=== PATIENT | female | born 1980 | race American Indian/Alaskan Native ===

== ENCOUNTER 2018-06-16 14:59 | Emergency (ER) | payer OTHER ==
[2018-06-16 16:17] LABS: BASO % 0.6 % (0.0-2.0); EOS # 0.2 K/uL (0.0-0.7); EOS % 2.3 % (0.0-4.0); HEMOGLOBIN 12.6 g/dL (11.0-16.0); LYMPH # 2.5 K/uL (1.0-4.3); LYMPH % 36.1 % (20.0-40.0); MEAN CELL VOLUME 76.8 fL (81.0-99.0); MEAN CORPUSCULAR HEMOGLOBIN 24.6 pg (27.0-31.0); MEAN PLATELET VOLUME 9.5 fL (7.2-11.7); MONO # 0.6 K/uL (0.0-0.8); NEUT # 3.6 K/uL (1.8-7.0); RBC 5.12 Mil/uL (3.80-5.20); RED CELL DISTRIBUTION WIDTH 15.9 % (11.5-14.5)
[2018-06-16 17:23] LABS: SQUAMOUS EPITHIAL < 1 /hpf (0-5); URINE BILIRUBIN NEGATIVE (NEGATIVE); URINE BLOOD NEGATIVE (NEGATIVE); URINE CLARITY Clear (Clear); URINE COLOR Straw (YELLOW); URINE GLUCOSE (UA) NORMAL (Normal); URINE LEUKOCYTE ESTERASE NEG Leu/uL (Negative); URINE PROTEIN NEGATIVE (NEGATIVE); URINE UROBILINOGEN NORMAL mg/dL (0.2-1.0)
--- NOTE | 2018-06-16 17:46 | US ---
Indication: decreased movement Comparison: None available Technique: Real-time ultrasound was performed through the pelvis. Findings: There is a single living fetus in cephalic presentation. Amniotic fluid volume is within normal limits, 14.3 cm. Anterior placenta. The placenta is not previa. There are no adnexal masses or cysts evident. Cervix length measures approximately 3.1 cm. The study was performed for the emergent evaluation of decreased movement, and the whole anatomic survey of the fetus was not performed. This should be performed on an outpatient elective basis as clinically warranted. Measurements and calculations: Fetus has a composite sonographic age of 33 weeks 6 days. This calculation is based on the biparietal diameter, head circumference, abdominal circumference, and femur length. Estimated heart rate 144.4 beats per min. Estimated weight 2251 g. Biophysical profile: movements 2/2 breathing 2/2 tone 2/2 Amniotic fluid 2/2 Total score impression: 01/15 Impression: Single living fetus with a composite sonographic age of 33 weeks 6 days. Estimated heart rate 144.4 beats per min. Biophysical profile of 8 out of 8.
--- NOTE | 2018-06-16 18:00 | OBHP ---
Datetime: 06/16/2018 15:41 IP Adm Impression: , intrauterine Admit Comment, IP Provider: Patient is 37 year old at 35w0d JESSI 07[birth year] who presents to [facility] and delivery for decreased movement. Patient states that she was feeling contractions intermi ttently over the weekend. Prior to arrival she felt a sharp pelvic pain then she reports not feeling the baby move. Currenlty she states the baby is moving, denies any VB or LOF. Patient is a private of Dr Lynn Cotton, last appointment was 3 weeks ago. History: Denies OB Hx: Hx of delivery at 35 weeks x 1 at term x 3 SAB x 2 [employer] Hx: LMP Unknown Allergies: NKDA Medications: PNV Medical History: Denies Surgical History: Denies Social History: Denies alcohol, drug, tobacco use Family History: Denies PE: see above A/P: 37 year old at 35w0d who presents with pelvic pain and decreased FM -CEFM and TOCO - Biophysical Profile -CBC and UA -Plan discussed with Dr Rohan Vargas DO PGY-2 1800 sono bpp 8/8 ua neg cbc stable nst 130 mod aundrea ctg1 plan dc home ptl gi po hy f/u dr cotton in 2-3 dys FHR - Baseline A Provider: 145 Contraction Comments Provider: none Comments, ACOG Physical Exam: VSS Gen: AAOX3, NAD SVE: Closed/thick/high Ext: No clubbing, cyanosis, edema IP Hx Assessment: The History has been Reviewed and is Current EGA AdmitDate IP: 35.0 Vital Signs Provider: Reviewed; Within Normal Limits IP Chief Complaint: Uterine contractions; Decreased movement NICHD Variability Prov Fetus A: Moderate 6-25bpm NICHD Accel Fetus A IP Provider: 15X15 FHR Category Provider Fetus A: Category I NICHD Decel Fetus A IP Provider: None Dilatation, Provider: closed Effacement, Provider: thick Station, Provider: high
--- NOTE | 2018-06-16 18:00 | OBDCSUM ---
Datetime: 06/16/2018 17:58 Discharged to, Provider: Home Follow up at, Provider: 2-3 Disch Instr Activity: Normal activity Disch Instr Diet: Regular Discharge Time: 06/16/2018 17:57 Follow up in weeks, Provider: dr cotton Disch Referrals: None Discharge Comment, Provider: dc home ptl gi po hy f/u dr cotton in 2-3 dys Discharge Diagnosis Prov Other: 35 we dec fm nst
[2018-06-16 22:14] VITALS: BP 111/65; PULSE 70; RESP 20; TEMP 97.9; O2SAT 100
== END 2018-06-16 18:04 | disposition home or self-care (01) ==
LOC: C.EROB 14:59
DX: O36.8130 Decreased fetal movements, third trimester, not applicable or unspecified (principal); Z3A.35 35 weeks gestation of pregnancy

== ENCOUNTER 2018-07-09 21:19 | Inpatient (IN) | payer OTHER ==
--- NOTE | 2018-07-09 22:05 | OBADHP ---
Datetime: 07/09/2018 22:00 Admit Comment, IP Provider: at 38+weeks camne wih c/o ctxs started in the morning with pressure , no vb , lof?+fm obhx 4 x pmh de med pnv all nkda psh de soch de ve 4-5/70/-3 a/p at 38+weks in active labor admit to l_d npo/ivf labs arline pain danis cytotec dr cotton aware Pelvic Type - PN: Adequate Extremities - PN: Normal Abdomen - PN: Normal Back - PN: Normal Breast - PN: Normal Lungs - PN: Normal Heart - PN: Normal Thyroid - PN: Normal Neurologic - PN: Normal HEENT - PN: Normal General - PN: Normal FHR - Baseline A Provider: 150 Contraction Comments Provider: occ IP Hx Assessment: The History has been Reviewed and is Current Vital Signs Provider: Reviewed; Within Normal Limits IP Chief Complaint: Uterine contractions NICHD Variability Prov Fetus A: Moderate 6-25bpm NICHD Accel Fetus A IP Provider: [id number] FHR Category Provider Fetus A: Category I Dilatation, Provider: 4 Effacement, Provider: 70 Station, Provider: -2 Genitourinary Exam: Normal DTRs - PN: Normal EGA AdmitDate IP: 38.2 IP Adm Impression: Term, intrauterine ; Active labor IP Admit Plan: Admit to unit; Initiate labor protocol Datetime: 06/16/2018 15:41 Comments, ACOG Physical Exam: VSS Gen: AAOX3, NAD SVE: Closed/thick/high Ext: No clubbing, cyanosis, edema NICHD Decel Fetus A IP Provider: None
[2018-07-09] MEDS ORDERED: Penicillin G 5 Million Unit Vial IVPB ONE ×2 (22:06→23:14)
[2018-07-09 22:07] VITALS: BMI 40.3
[2018-07-09] MEDS: Lactated Ringer's 1,000 ML IV SCH (22:30)
[2018-07-09 23:02] LABS: BASO % 0.5 % (0.0-2.0); EOS # 0.1 K/uL (0.0-0.7); EOS % 1.5 % (0.0-4.0); LYMPH % 31.4 % (20.0-40.0); MEAN CORPUSCULAR HEMOGLOBIN 24.9 pg (27.0-31.0); MEAN CORPUSCULAR HGB CONC 32.3 g/dL (33.0-37.0); MEAN PLATELET VOLUME 9.9 fL (7.2-11.7); MONO # 0.5 K/uL (0.0-0.8); MONO % 7.6 % (0.0-10.0); NEUT # 3.7 K/uL (1.8-7.0); RBC 4.82 Mil/uL (3.80-5.20); RED CELL DISTRIBUTION WIDTH 16.3 % (11.5-14.5); WHITE BLOOD COUNT 6.3 K/uL (4.8-10.8)
[2018-07-09 23:07] LABS: SQUAMOUS EPITHIAL 3 /hpf (0-5); URINE BILIRUBIN NEGATIVE (NEGATIVE); URINE BLOOD NEGATIVE (NEGATIVE); URINE CLARITY Clear (Clear); URINE COLOR Yellow (YELLOW); URINE GLUCOSE (UA) NORMAL (Normal); URINE LEUKOCYTE ESTERASE NEG Leu/uL (Negative); URINE PROTEIN NEGATIVE (NEGATIVE); URINE UROBILINOGEN NORMAL mg/dL (0.2-1.0)
[2018-07-09 23:13] LABS: ALB/GLOB RATIO 1.1 (1.0-2.1); ALBUMIN 3.6 g/dL (3.5-5.0); ALT/SGPT 38 U/L (9-52); AST/SGOT 25 U/L (14-36); BLOOD UREA NITROGEN 8 mg/dL (7-17); CALCIUM 8.9 mg/dl (8.6-10.4); GFR NON-AFRICAN AMERICAN > 60
[2018-07-10] MEDS: Lactated Ringer's 1,000 ML IV SCH ×2 (03:30→09:10)
[2018-07-10] MEDS ORDERED: Oxytocin 30 UNIT 30 UNITS/500 ML BAG IV SCH (06:00)
[2018-07-10] MEDS ORDERED: Oxytocin 30 UNIT 30 UNITS/500 ML BAG IV ONE (07:47)
[2018-07-10] MEDS ORDERED: Bupivacaine HCl/FentaNYL Cit 100 ML EPI ONE (11:14)
[2018-07-10] MEDS ORDERED: Sodium Citrate/Citric Acid 15 ml Sol ONE (13:08)
[2018-07-10] MEDS ORDERED: Sodium Citrate/Citric Acid 15 ml Sol PO ONE (13:12)
[2018-07-10] MEDS ORDERED: Erythromycin 0.5% Ophth Oint 1 APPLIC/3.5 G ONE (13:48)
--- NOTE | 2018-07-10 13:48 | OBPN ---
Datetime: 07/10/2018 13:35 IP Progress Impression: Normal progression of labor IP Procedures: Artificial ROM; Sterile Vag Exam IP Progress Plan: Continue present management; Augmentation; Anticipate Vaginal Delivery IP Progress Note Comment: Asked by Dr. Madrigal to perform AROM Patietn is S/P epidural; no c/o Ctx. (+) FM Cervical exam as above. AROM performed - copious amount of clear amnionic fluid. Pitocin = 18 Jonatan ts Assessment: 37 y.o. P3103, 38w 3d, in active labor on pitocin. GBS (+) - receiving penicillin. Ca tegory 1 tracing. Clinically stable. Plan: 1) Anticipate vaginal delivery - Dr. Madrigal is aware. Datetime: 07/09/2018 22:00 Contraction Comments Provider: occ FHR - Baseline A Provider: 150 Vital Signs Provider: Reviewed; Within Normal Limits NICHD Accel Fetus A IP Provider: 15X15 FHR Category Provider Fetus A: Category I NICHD Variability Prov Fetus A: Moderate 6-25bpm Dilatation, Provider: 4 Effacement, Provider: 70 Station, Provider: -2 Datetime: 06/16/2018 15:41 NICHD Decel Fetus A IP Provider: None
[2018-07-10] MEDS ORDERED: Phytonadione 1 mg/0.5 ml Inj (Neonatal) ONE (13:49)
[2018-07-10] MEDS ORDERED: Benzocaine/Menthol 20%-0.5% Topical Spray (60 ml) TOP PRN (14:27)
--- NOTE | 2018-07-10 14:47 | OBDS ---
MATERNAL INFORMATION Provider Comments: pt was fully dilated and pushing. Atrumatic, spontanous delivery of head, loose n uchal cord x 1 easily reduced. Atraumatic, spontaneous delivery of anterior followed by posterior sh oulder followed by delivery of yobani body. Both oral and nasal passages of the baby were bulb suctione d. umbilical cord was clamped and cut. baby handed to mother on abodmen with rn assistance. cord blo od and cord gases collected and seen x 2. Spontaneous delivery of intact placenta with membarnes. Fun dus Firm, Methergien IM x 1 given. Intact perineum. Good hemostais, no complications. Live female infnat weight 6lbs 5 ounces ebl 100ml apgars 9,9 LABOR SUMMARY EDC: 07/21/2018 00:00 No. Babies in Womb: 1 LABOR INFORMATION Other Ripening Agents: CYTOTEC 25 MCGMS P.O.-GIVEN Group B Beta Strep: Positive (Annotations: 07/04/2018) MEMBRANES Membranes Rupture Method: Artificial Rupture of Membranes: 07/10/2018 13:32 Amniotic Fluid Color: Clear Amniotic Fluid Amount: Moderate Amniotic Fluid Odor: Normal
[2018-07-10] MEDS: Diphenhydramine 1% Cream (1 oz) TOP PRN (20:22)
[2018-07-11] MEDS: Diphenhydramine 1% Cream (1 oz) TOP PRN (05:47)
--- NOTE | 2018-07-11 08:15 | OBPPN ---
Datetime: 07/11/2018 08:11 PP Pain Prov: Within normal limits PP Nausea Prov: Denies PP Flatus Prov: Yes PP BM Prov: No PP Breasts Prov: Normal PP Heart Prov: Normal PP Lungs Prov: Normal PP Abdomen/Uterus Prov: Normal PP Lochia Prov: Normal PP Vulva/Perineum Prov: Normal PP CVA Tenderness Prov: Normal PP Extremities Prov: Normal PP C/S Incision Prov: Not Applicable PP Progress Prov: Normal PP Impression Prov: Normal progression PP Plan Prov: Continue present management PP Progress Note Prov: pt seen and examined adn reprost crampign pain only partially improved with m otrin. pt denies any bleeding, discharge, fever, chills, nasue,v omting, cp, sob, sadnes, depression. pt does reprots soem discmofrt in hip with walking due ot sciatcia. VSS PE see above a/p s/p SNVD PPD #1 pain managmnet encourage breast feedign and ambuation heat packs will observe IP PP Procedures: None Vital Signs Provider PP: Reviewed; Within Normal Limits
[2018-07-11] MEDS: Oxycodone/Acetaminophen 5/325 mg Tab PO PRN ×3 (08:25→23:33)
[2018-07-11 11:15] LABS: BASO % 0.3 % (0.0-2.0); EOS # 0.2 K/uL (0.0-0.7); EOS % 2.5 % (0.0-4.0); HEMOGLOBIN 11.6 g/dL (11.0-16.0); LYMPH # 2.6 K/uL (1.0-4.3); LYMPH % 27.3 % (20.0-40.0); MEAN CELL VOLUME 77.6 fL (81.0-99.0); MEAN CORPUSCULAR HEMOGLOBIN 25.1 pg (27.0-31.0); MEAN CORPUSCULAR HGB CONC 32.4 g/dL (33.0-37.0); MEAN PLATELET VOLUME 9.9 fL (7.2-11.7); MONO # 0.9 K/uL (0.0-0.8); NEUT # 5.6 K/uL (1.8-7.0); NEUT % 59.9 % (50.0-75.0); RBC 4.63 Mil/uL (3.80-5.20); RED CELL DISTRIBUTION WIDTH 16.2 % (11.5-14.5); WHITE BLOOD COUNT 9.4 K/uL (4.8-10.8)
--- NOTE | 2018-07-12 07:59 | OBPPN ---
Datetime: 07/12/2018 07:57 PP Pain Prov: Within normal limits PP Nausea Prov: Denies PP Flatus Prov: Yes PP BM Prov: No PP Breasts Prov: Normal PP Heart Prov: Normal PP Lungs Prov: Normal PP Abdomen/Uterus Prov: Normal PP Lochia Prov: Normal PP Vulva/Perineum Prov: Normal PP CVA Tenderness Prov: Normal PP Extremities Prov: Normal PP C/S Incision Prov: Not Applicable PP Progress Prov: Normal PP Impression Prov: Normal progression PP Plan Prov: Continue present management; Discharge Vital Signs Provider PP: Reviewed; Within Normal Limits
--- NOTE | 2018-07-12 08:01 | OBDCSUM ---
Datetime: 07/12/2018 07:58 Discharged to, Provider: Home Follow up at, Provider: Dr Madrigal Disch Instr Activity: Normal activity Disch Instr Diet: Regular Discharge Instructions, Provider: Routine instructions given Discharge Diagnosis, Provider: Term Delivered Discharge Time: 07/12/2018 07:58 Follow up in weeks, Provider: 6 weeks Disch Referrals: None Contraception discussed, Prov: Yes Disch Activity Restrictions: No sexual activity; Nothing in vagina - [place], tampons, douche Discharge Comment, Provider: precautions give no intercouse, no douching, no relations x 6 weeks Contraception after Delivery: Not Planning to Use
[2018-07-12 08:43] VITALS: BP 90/61; TEMP 97.8
[2018-07-12] MEDS ORDERED: Influenza Vaccine 60 mcg/0.5 mL SYR (4YR UP) IM ONE (10:21)
[2018-07-12 19:36] VITALS: PULSE 66; RESP 18; O2SAT 98
== END 2018-07-12 15:35 | disposition home or self-care (01) | DRG 807 ==
LOC: C.EROB 21:19 → C.4D 22:00 → C.4M 07-10 16:40
PROVIDERS: ADMIT Obstetrics & Gynecology; ATTEND Obstetrics & Gynecology
PROC: 10E0XZZ Delivery of Products of Conception, External Approach (ICD-10-PCS; principal; 2018-07-10)
PROC: 10907ZC Drainage of Amniotic Fluid, Therapeutic from Products of Conception, Via Natural or Artificial Opening (ICD-10-PCS; 2018-07-10)
DX: O99.824 Streptococcus B carrier state complicating childbirth (principal); Z37.0 Single live birth; O69.81X0 Labor and delivery complicated by cord around neck, without compression, not applicable or unspecified; Z3A.38 38 weeks gestation of pregnancy